=== PATIENT | male | born 1970 | race Hispanic/Latino ===

== ENCOUNTER 2021-04-07 13:11 | Emergency (ER) | payer OTHER ==
[~2021-04-07] VITALS: Ht 30.5 cm; Wt 116.1 kg
[2021-04-07 13:12] VITALS: BP 126/85
[2021-04-07 13:30] VITALS: BP 145/84
== END 2021-04-07 15:42 | disposition home or self-care (01) ==
LOC: EDH 13:11
DX: S62.636A Displaced fracture of distal phalanx of right little finger, initial encounter for closed fracture (principal); S67.196A Crushing injury of right little finger, initial encounter; I10 Essential (primary) hypertension; E66.9 Obesity, unspecified; W23.0XXA Caught, crushed, jammed, or pinched between moving objects, initial encounter; Y93.89 Activity, other specified; Y92.812 Truck as the place of occurrence of the external cause; Y99.8 Other external cause status
CPT/HCPCS: 73140

== ENCOUNTER 2021-04-09 01:20 | Observation (INO) | payer OTHER ==
[~2021-04-09] VITALS: Ht 185.4 cm; Wt 115.2 kg
[2021-04-09] VITALS (21 sets, daily range): BP systolic 125–163; BP diastolic 72–106
[2021-04-09] MEDS ORDERED: ACETAMINOPHEN WITH CODEINE 1 TAB TAB PO PRN ×2 (06:15)
[2021-04-09] MEDS ORDERED: MORPHINE 2 MG SYG IV PRN (06:15)
[2021-04-09] MEDS: CEFAZOLIN SODIUM 1 GM VIAL IVP SCH ×2 (06:43→11:44)
[2021-04-09 08:19] LABS: BASOPHILS % (AUTO) 0.9 % (0.0-5.0); EOSINOPHILS % (AUTO) 4.6 % (0.0-8.0); HEMATOCRIT 47.8 % (42-54); MEAN CORPUSCULAR HEMOGLOBIN 27.1 pg (27.0-33.0); MEAN CORPUSCULAR HGB CONC 33.1 g/dL (32.0-36.0); MONOCYTES % (AUTO) 5.6 % (3.0-13.0); NEUTROPHILS % (AUTO) 59.7 % (40.0-77.0); PLATELET COUNT (AUTO) 294 K/uL (130-400); RED BLOOD CELL COUNT(AUTO) 5.83 MIL/uL (4.50-6.20); RED CELL DISTRIBUTION WIDTH 13.4 % (11.0-15.5)
[2021-04-09 08:30] LABS: ALBUMIN 4.1 g/dL (3.5-5.0); BILIRUBIN,TOTAL 0.3 mg/dL (0.2-1.0); CREATININE 1.1 mg/dL (0.5-1.5); TOTAL PROTEIN, SERUM 8.4 g/dL (6.0-8.3)
[2021-04-09] MEDS ORDERED: 0.9%NACL 100ML 100 ML ONE (09:09)
[2021-04-09] MEDS ORDERED: 0.9%NACL 1000ML 1,000 ML IV ONE (11:01)
[2021-04-09] MEDS ORDERED: METF-445 PO (11:31)
[2021-04-09] MEDS ORDERED: SUCCINYLCHOLINE 200MG/10ML SYR ONE (11:32)
[2021-04-09] MEDS ORDERED: LIDOCAINE PF 100MG/5ML (2%) SYRINGE 5ML ONE (11:32)
[2021-04-09] MEDS ORDERED: ONDANSETRON 4MG INJ ONE (11:32)
[2021-04-09] MEDS ORDERED: PROPOFOL 10 MG/ML 20ML VIAL IV ONE (11:32)
[2021-04-09] MEDS ORDERED: DEXAMETHASONE SOD PHOSPHATE 10MG/ML 1ML VIAL ONE (11:32)
[2021-04-09] MEDS ORDERED: FENTANYL CITRATE PF 50 MCG/1 ML 2ML VIAL ONE (11:33)
[2021-04-09] MEDS ORDERED: MEPERIDINE-PF 25 MG/ML SYG ONE ×2 (11:35→12:48)
[2021-04-09] MEDS ORDERED: MIDAZOLAM HCL 1 MG/ML 2ML VIAL ONE (11:35)
[2021-04-09] MEDS ORDERED: CEFAZOLIN SODIUM 1 GM VIAL ONE (11:49)
[2021-04-09] MEDS ORDERED: CEFAZOLIN SODIUM 1 GM VIAL IRRIG ONE (12:00)
[2021-04-09] MEDS ORDERED: LABETALOL 20MG VIAL IV ONE (12:37)
== END 2021-04-09 15:00 | disposition home or self-care (01) ==
LOC: EDH 01:20 → INTOOBSV 06:24 → EDHIP 06:24 → DAHIP 12:30
PROVIDERS: ADMIT Surgery Plastic and Reconstructive Surgery; ATTEND Surgery Plastic and Reconstructive Surgery
DX: S62.606A Fracture of unspecified phalanx of right little finger, initial encounter for closed fracture (principal); S61.212A Laceration without foreign body of right middle finger without damage to nail, initial encounter; S60.051A Contusion of right little finger without damage to nail, initial encounter; S67.196A Crushing injury of right little finger, initial encounter; E66.9 Obesity, unspecified; I10 Essential (primary) hypertension; Z79.899 Other long term (current) drug therapy; W23.0XXA Caught, crushed, jammed, or pinched between moving objects, initial encounter; Y92.89 Other specified places as the place of occurrence of the external cause; Y93.89 Activity, other specified; Y99.8 Other external cause status
CPT/HCPCS: 26756; 36415; 80053; 82948 ×2; 85025; 96361; 96374; 96375; 99284; A4215; A4216 ×2; A4221; A4222 ×2; A4223 ×4; A4606 ×2; A4663 ×2; A6402; G0168; G0378 ×8; J0330; J0690 ×4; J1100; J2001; J2175 ×2; J2250; J2405; J2704; J3010; J3490; J7030